=== PATIENT | male | born 1970 | race Caucasian/White ===

== ENCOUNTER → 2018-08-05 | Outpatient (CLI) | payer BC ==
--- NOTE | 2018-08-06 08:46 | DIREP ---
PROCEDURE:MRI UPPER EXTREM JOINT W O CON RIGHT COMPARISON:None. INDICATIONS:R-C TEAR TECHNIQUE:A variety of imaging planes and parameters were utilized for visualization of suspected pathology. Images were performed without contrast. FINDINGS: ROTATOR CUFF: Mild supraspinatus tendinosis without visualized rotator cuff tear. Remainder the rotator cuff within normal limits. BICEPS TENDON: Normal intraarticular and extra-articular biceps. LABRUM :There is a superior labral tear with likely involvement of the bicipital anchor. The tear extends into the anteroinferior quarter AC JOINT: Advanced acromioclavicular osteoarthrosis, with bone marrow edema on both sides of the acromioclavicular joint suggesting apophyseolysis and/or acute injury.. No lateral tilt. Type I acromion. BONES:Severe bone marrow edema on both sides of the acromioclavicular joint. OTHER:No fluid in the subacromial subdeltoid bursa. No loose bodies. CONCLUSION: 1. Advanced acromioclavicular osteoarthritis with bone marrow edema on both sides of the joint, suggesting apophyseolysis. 2. Mild supraspinatus tendinosis without rotator cuff tear. 3. Superior labral tear extending to the anterior inferior quarter. Likely involvement of the bicipital anchor. Dictated by: Edwardo Tucker DO on 08/06/2018 at 08:41 AM
== END | disposition home or self-care (01) ==
LOC: RAD 15:19
PROVIDERS: ATTEND Orthopaedic Surgery
DX: M19.012 Primary osteoarthritis, left shoulder (principal); M19.011 Primary osteoarthritis, right shoulder; S43.51XA Sprain of right acromioclavicular joint, initial encounter; M75.91 Shoulder lesion, unspecified, right shoulder; X58.XXXA Exposure to other specified factors, initial encounter; Y93.89 Activity, other specified; Y92.89 Other specified places as the place of occurrence of the external cause; Y99.8 Other external cause status
CPT/HCPCS: 73221-RT